=== PATIENT | male | born 1995 | race Caucasian/White ===

== ENCOUNTER 2017-04-05 22:23 | Emergency (ER) | payer MEDICAID ==
[~2017-04-05] VITALS: Ht 167.6 cm; Wt 81.6 kg
[2017-04-05 22:30] VITALS: BP 139/83
--- NOTE | 2017-04-05 22:35 | NUR ---
PATIENT AMBULATED TO ER CHAIR A.
--- NOTE | 2017-04-05 22:37 | NUR ---
PATIENT IS A 22 Y/O MALE WHO PRESENTS TO THE ED C/O HEADACHE. PT STATES, "I DID METH AND NOW MY HEAD HURTS." PT REPORTS 9/10 ACHING HEADACHE PAIN THAT DOES NOT RADIATE. PT DENIES CP, SOB, N/V/D. PERRLA, LUNG SOUNDS CLEAR BL. PT AAOX4, RR EVEN/UNLABORED. PT REPOSITIONED FOR COMFORT, PT SITTING IN CHAIR. ER MD DR. STOUT NOTIFIED. WILL CONTINUE TO MONITOR.
[2017-04-05] MEDS ORDERED: ACETAMINOPHEN EXTRA STRENGTH 500 MG TAB PO ONE (23:45)
[2017-04-05] MEDS ORDERED: LORazepam 1 MG TAB PO ONE (23:45)
[2017-04-06 00:03] LABS: BARBITURATE, URINE POS. ng/ml (NEG <=200); BENZODIAZEPINE, URINE NEG. ng/mL (NEG <=200); CANNABINOID, URINE NEG. ng/mL (NEG <=50); COCAINE, URINE POS. ng/mL (NEG <=300); OPIATE, URINE NEG. ng/mL (NEG <=2000); PHENCYCLIDINE SCREEN,URINE NEG. ng/mL (NEG <=25)
--- NOTE | 2017-04-06 00:14 | NUR ---
Patient discharged with v/s stable. Written and verbal after care instructions given and explained. Patient alert, oriented and verbalized understanding of instructions. Ambulatory with steady gait. All questions addressed prior to discharge. ID band removed. Patient advised to follow up with PMD. Rx of ATIVAN 2MG AND IBUPROFEN 600MG given. Patient educated on indication of medication including possible reaction and side effects. Opportunity to ask questions provided and answered.
[2017-04-06 00:15] VITALS: BP 132/85
== END 2017-04-06 00:15 | disposition home or self-care (01) ==
LOC: MED 22:23
DX: F15.151 Other stimulant abuse with stimulant-induced psychotic disorder with hallucinations (principal)
CPT/HCPCS: 80305; 99283